=== PATIENT | male | born 1965 | race Caucasian/White ===

== ENCOUNTER 2020-07-25 18:15 | Inpatient (IN) | payer BC ==
[2020-07-25] MEDS ORDERED: MORPHINE SULFATE 4 MG/ML SYRINGE IV STA (18:17)
[2020-07-25] MEDS ORDERED: ONDANSETRON 4 MG/2 ML VIAL IVP STA (18:17)
[2020-07-25] MEDS ORDERED: HEPARIN SODIUM,PORCINE 5,000 UNIT/ML 1 ML VIAL IV STA (18:17)
[2020-07-25] MEDS ORDERED: ATORVASTATIN 80 MG TAB PO STA (18:21)
--- NOTE | 2020-07-25 18:24 | ED ---
General Adult HPI - General Chief complaint: Chest Pain Stated complaint: stemi Time Seen by Provider: 07/25/20 18:17 Source: patient, EMS Mode of arrival: EMS Limitations: no limitations - History of Present Illness Initial comments: Patient presents the ED by ambulance for evaluation. Patient states that he developed substernal chest pressure about 1.25 hours ago while watching television at rest. Patient admits to having associated dyspnea, nausea and vomiting. Patient states that his pain radiates to his bilateral axillae. Patient was given aspirin and nitroglycerin 2 by EMS. Patient reports that his pain has improved with the nitroglycerin that he was given by EMS, and he reports that his pain is currently 6 out of 10 in severity. Patient admits to smoking cigarettes regularly. Patient denies having any medical conditions, and he denies taking any medications regularly. Patient also denies illicit drug use. Patient denies trauma or injury, fever or chills, headache, focal numbness/weakness/neuro deficit, neck/jaw pain, back pain, pleuritic pain, cough or cold symptoms, palpitations, dizziness, diaphoresis, abdominal pain, urinary symptoms, leg or calf swelling or pain, or any other symptoms or complaints. After reviewing EMS EKG on patient's arrival to the ED, a code STEMI was called. - Related Data Home Medications Medication Instructions Recorded Confirmed No Known Home Medications 07/25/20 07/25/20 Allergies Allergy/AdvReac Type Severity Reaction Status Date / Time No Known Allergies Allergy Verified 07/25/20 18:25 Review of Systems ROS Statement: Those systems with pertinent positive or pertinent negative responses have been documented in the HPI. ROS Other: All systems not noted in ROS Statement are negative. Past Medical History Past Medical History: No Reported History History of Any Multi-Drug Resistant Organisms: None Reported Past Surgical History: Hernia Repair Past Psychological History: No Psychological Hx Reported Smoking Status: Current every day smoker Past Alcohol Use History: None Reported Past Drug Use History: None Reported General Exam Limitations: no limitations General appearance: alert, in no apparent distress Head exam: Present: atraumatic, normocephalic Eye exam: Present: normal appearance, EOMI ENT exam: Present: mucous membranes moist Neck exam: Present: other (Trachea is in midline) Respiratory exam: Present: normal lung sounds bilaterally. Absent: respiratory distress, wheezes, rales, rhonchi, stridor, chest wall tenderness Cardiovascular Exam: Present: normal rhythm, bradycardia, normal heart sounds, other (Normal radial pulses bilaterally) GI/Abdominal exam: Present: soft. Absent: distended, tenderness, guarding Extremities exam: Present: other (Negative Homans sign bilaterally). Absent: tenderness, pedal edema, calf tenderness Neurological exam: Present: alert, oriented X3. Absent: motor sensory deficit Psychiatric exam: Present: normal affect, normal mood Skin exam: Present: warm, dry, intact, normal color Course Vital Signs 07/25/20 07/25/20 18:15 18:32 Temperature 98 F Pulse Rate 53 L 52 L Respiratory 18 18 Rate Blood Pressure 134/83 117/72 O2 Sat by Pulse 97 98 Oximetry - Reevaluation(s) Reevaluation #1: 07/25/20 18:20 Case, H&P, EKG findings and ED/EMS management thus far were discussed with Dr. Perez (cardiology). He states that he will be in to the hospital as soon as possible to take the patient to the denture laboratory technician. He has no further recommendations at this time. 07/25/20 19:05 Case was discussed with Dr. Rojas. He accepts hospital admission. EKG Findings - EKG Comments: EKG Findings:: Sinus bradycardia, ventricular rate of 54 bpm, no ectopy, normal ID and QRS intervals, normal QT interval, rightward axis, inferior lead ST elevations with anterior lead reciprocal changes Medical Decision Making - Medical Decision Making Patient's EMS and ED EKGs both show an inferior STEMI. Code STEMI was called upon the patient's arrival to the ED. Dr. Perez (cardiology) met the patient in the ED, and has taken the patient to the Chair. Dr. Rojas has accepted hospital admission. - Lab Data Result diagrams: 07/25/20 18:16 07/25/20 18:16 Lab Results 07/25/20 07/25/20 07/25/20 Range/Units 18:16 18:16 18:16 WBC 14.3 H (3.8-10.6) k/uL RBC 4.83 (4.30-5.90) m/uL Hgb 15.5 (13.0-17.5) gm/dL Hct 47.4 (39.0-53.0) % MCV 98.0 (80.0-100.0) fL MCH 32.0 (25.0-35.0) pg MCHC 32.7 (31.0-37.0) g/dL RDW 12.9 (11.5-15.5) % Plt Count 197 (150-450) k/uL MPV 6.9 Neutrophils % 66 % Lymphocytes % 25 % Monocytes % 5 % Eosinophils % 3 % Basophils % 1 % Neutrophils # 9.3 H (1.3-7.7) k/uL Lymphocytes # 3.5 (1.0-4.8) k/uL Monocytes # 0.7 (0-1.0) k/uL Eosinophils # 0.4 (0-0.7) k/uL Basophils # 0.2 (0-0.2) k/uL PT 10.7 (9.0-12.0) sec INR 1.0 (<1.2) APTT 22.2 (22.0-30.0) sec Sodium 138 (137-145) mmol/L Potassium 3.8 (3.5-5.1) mmol/L Chloride 104 (98-107) mmol/L Carbon Dioxide 25 (22-30) mmol/L Anion Gap 9 mmol/L BUN 19 (9-20) mg/dL Creatinine 1.07 (0.66-1.25) mg/dL Est GFR (CKD-EPI)AfAm >90 (>60 ml/min/1.73 sqM) Est GFR (CKD-EPI)NonAf 78 (>60 ml/min/1.73 sqM) Glucose 159 H (74-99) mg/dL Calcium 9.0 (8.4-10.2) mg/dL Magnesium 1.9 (1.6-2.3) mg/dL Total Bilirubin 0.4 (0.2-1.3) mg/dL AST 26 (17-59) U/L ALT 24 (4-49) U/L Alkaline Phosphatase 66 (38-126) U/L Troponin I (0.000-0.034) ng/mL NT-Pro-B Natriuret Pep pg/mL Total Protein 6.5 (6.3-8.2) g/dL Albumin 3.9 (3.5-5.0) g/dL Coronavirus (PCR) (Not Detectd) 07/25/20 07/25/2021 Range/Units 18:16 18:16 18:32 WBC (3.8-10.6) k/uL RBC (4.30-5.90) m/uL Hgb (13.0-17.5) gm/dL Hct (39.0-53.0) % MCV (80.0-100.0) fL MCH (25.0-35.0) pg MCHC (31.0-37.0) g/dL RDW (11.5-15.5) % Plt Count (150-450) k/uL MPV Neutrophils % % Lymphocytes % % Monocytes % % Eosinophils % % Basophils % % Neutrophils # (1.3-7.7) k/uL Lymphocytes # (1.0-4.8) k/uL Monocytes # (0-1.0) k/uL Eosinophils # (0-0.7) k/uL Basophils # (0-0.2) k/uL PT (9.0-12.0) sec INR (<1.2) APTT (22.0-30.0) sec Sodium (137-145) mmol/L Potassium (3.5-5.1) mmol/L Chloride (98-107) mmol/L Carbon Dioxide (22-30) mmol/L Anion Gap mmol/L BUN (9-20) mg/dL Creatinine (0.66-1.25) mg/dL Est GFR (CKD-EPI)AfAm (>60 ml/min/1.73 sqM) Est GFR (CKD-EPI)NonAf (>60 ml/min/1.73 sqM) Glucose (74-99) mg/dL Calcium (8.4-10.2) mg/dL Magnesium (1.6-2.3) mg/dL Total Bilirubin (0.2-1.3) mg/dL AST (17-59) U/L ALT (4-49) U/L Alkaline Phosphatase (38-126) U/L Troponin I 0.013 (0.000-0.034) ng/mL NT-Pro-B Natriuret Pep 36 pg/mL Total Protein (6.3-8.2) g/dL Albumin (3.5-5.0) g/dL Coronavirus (PCR) Not Detected (Not Detectd) - Radiology Data Radiology results: report reviewed (Chest x-ray shows no active cardiopulmonary disease) Critical Care Time Critical Care Time: Yes Total Critical Care Time: 25 (STEMI) Disposition Clinical Impression: ST elevation myocardial infarction (STEMI) Disposition: ADMITTED IP TO THIS HOSP Condition: Stable Is patient prescribed a controlled substance at d/c from ED?: No Time of Disposition: 18:35
--- NOTE | 2020-07-25 18:29 | XR ---
EXAMINATION TYPE: XR chest 1V portable DATE OF EXAM: 07/25/2020 COMPARISON: NONE HISTORY: Chest pain TECHNIQUE: FINDINGS: Heart is normal. Lungs are clear of infiltrate. There is no heart failure. There are no hil ar masses. Costophrenic angles are clear. Bony thorax is intact. IMPRESSION: No active cardiopulmonary disease. Normal heart.
[2020-07-25 18:32] LABS: Basophils # (A) 0.2 k/uL (0-0.2); Basophils % (A) 1 %; Eosinophils # (A) 0.4 k/uL (0-0.7); Eosinophils % (A) 3 %; HCT 47.4 % (39.0-53.0); HGB 15.5 gm/dL (13.0-17.5); Lymphocytes # (A) 3.5 k/uL (1.0-4.8); Lymphocytes % (A) 25 %; MCHC 32.7 g/dL (31.0-37.0); Mean Platelet Volume 6.9; Monocytes # (A) 0.7 k/uL (0-1.0); Monocytes % (A) 5 %; Neutrophils # (A) 9.3 k/uL (1.3-7.7); Neutrophils % (A) 66 %; Platelet Count 197 k/uL (150-450); RBC 4.83 m/uL (4.30-5.90); RDW 12.9 % (11.5-15.5); WBC 14.3 k/uL (3.8-10.6)
[2020-07-25 18:39] LABS: ALT 24 U/L (4-49); AST 26 U/L (17-59); African American GFR (CKD) >90 (>60 ml/min/1.73 sqM); Albumin 3.9 g/dL (3.5-5.0); Alkaline Phosphatase 66 U/L (38-126); Anion Gap 9 mmol/L; Blood Urea Nitrogen 19 mg/dL (9-20); Carbon Dioxide 25 mmol/L (22-30); Chloride 104 mmol/L (98-107); Glucose 159 mg/dL (74-99); Magnesium 1.9 mg/dL (1.6-2.3); Non-African American GFR(CKD) 78 (>60 ml/min/1.73 sqM); Potassium 3.8 mmol/L (3.5-5.1); Sodium 138 mmol/L (137-145); Total Bilirubin 0.4 mg/dL (0.2-1.3); Total Protein 6.5 g/dL (6.3-8.2)
[2020-07-25 18:42] LABS: Partial Thromboplastin Time 22.2 sec (22.0-30.0); Prothrombin Time 10.7 sec (9.0-12.0)
[2020-07-25] MEDS ORDERED: LIDOCAINE 1% INJ 10MG/ML (20 ML MDV) ONE (18:46)
[2020-07-25] MEDS ORDERED: fentaNYL (PF) 50 MCG/ML 2 ML AMP ONE (18:46)
[2020-07-25] MEDS ORDERED: HEPARIN SODIUM 1,000 UN/ML (10ML VL) ONE (18:46)
[2020-07-25] MEDS ORDERED: VERAPAMIL 2.5 MG/ML 2 ML AMP ONE (18:46)
[2020-07-25] MEDS ORDERED: SODIUM CHLORIDE 0.9% 1,000 ML IV ONE (18:49)
[2020-07-25] MEDS ORDERED: LIDOCAINE 1% INJ 10MG/ML (20 ML MDV) SQ ONE (18:56)
[2020-07-25] MEDS ORDERED: fentaNYL (PF) 50 MCG/ML 2 ML AMP IV ONE (18:57)
[2020-07-25] MEDS ORDERED: VERAPAMIL SYRINGE (5 MG/10 ML) INTRAARTER ONE (18:58)
[2020-07-25] MEDS ORDERED: HEPARIN SODIUM 1,000 UN/ML (10ML VL) IV ONE (19:01)
[2020-07-25] MEDS ORDERED: TICAGRELOR 90 MG TAB ONE (19:02)
[2020-07-25] MEDS ORDERED: TICAGRELOR 90 MG TAB PO ONE (19:05)
[2020-07-25] MEDS ORDERED: NOREPINEPHRINE 4 MG in SODIUM CHLORIDE 0.9% 250 ML IV ONE ×4 (19:22)
[2020-07-25] MEDS ORDERED: IOPAMIDOL-370 125ML BTL INJ ONE (19:29)
[2020-07-25] MEDS ORDERED: MAG HYDROX/AL HYDROX/SIMETH 30 ML CUP PO PRN (19:54)
[2020-07-25] MEDS ORDERED: RX INFO: IV CONTRAST WAS GIVEN 1 EACH MISC MISCELLANE PRN (19:54)
[2020-07-25] MEDS ORDERED: ATROPINE SULFATE 0.1 MG/ML 10ML SYRINGE IV PRN (19:54)
[2020-07-25] MEDS ORDERED: ZOLPIDEM 5 MG TAB PO PRN (19:54)
[2020-07-25] MEDS ORDERED: NITROGLYCERIN SL TABS 0.4 MG TAB SUBLINGUAL PRN (19:54)
[2020-07-25] MEDS ORDERED: SODIUM CHLORIDE 0.9% 1,000 ML IV SCH (20:00)
[2020-07-25] MEDS ORDERED: IOPAMIDOL-370 100ML BTL INJ ONE (20:08)
[2020-07-25] MEDS: ATORVASTATIN 80 MG TAB PO SCH (22:11)
--- NOTE | 2020-07-25 22:47 | CC ---
CARDIAC CATHETERIZATION REPORT Mr. Ybarra is a 54-year-old male with known history of chronic tobacco use, who presented to the emergency room with an acute onset chest discomfort, was found to have evidence of acute inferior wall myocardial infarction. In view of that, he was evaluated by Dr. Perez and recommendations were made regarding cardiac catheterization. The procedures, risks, and complications were discussed with the patient who is in full understanding and agreement. PROCEDURE DETAILS: Patient was brought to the dental laboratory worker in a semi sedated state after receiving fentanyl and Benadryl. He was draped and prepped it usual fashion. Using Xylocaine anesthesia and Seldinger technique, a 6-Chilean sheath was introduced in the right radial artery. Selective right coronary angiography performed using 6-Chilean FR4 guiding catheter. After performing angioplasty and stenting of the right coronary artery, a 5-Chilean 3 and half left Jl catheter was introduced in the system and images of the left coronary system were obtained. Following that a 5-Chilean tight pigtail catheter was introduced into left ventricle and a 30-degree CORDERO view of the left ventricle was obtained. Following that, catheter and sheath were removed. Hemostasis was obtained with deployment of a TR band. There was no immediate complication. The patient was returned to his room in stable condition. FINDINGS: LEFT MAIN: This is a large-sized vessel, bifurcating into left circumflex, left anterior descending artery, left main coronary artery has no evidence of high-grade stenosis. LEFT ANTERIOR DESCENDING ARTERY: This is a large-sized vessel, giving rise to a large diagonal branch in the proximal segment. The left anterior descending coronary artery has no evidence of high-grade stenosis. LEFT CIRCUMFLEX: This is a codominant system giving rise to a proximal diagonal branch, distally bifurcating into small PDA and PLV. The left circumflex as well as branches have no evidence of high-grade stenosis. RIGHT CORONARY ARTERY: This vessel is totally occluded in mid segment after the takeoff of the acute marginal branch. There is no evidence of antegrade flow. LEFT VENTRICULOGRAM: Left ventriculogram was performed in 30-degree CORDERO view and revealed normal left ventricular size. The inferior wall is mildly hypokinetic. The estimated ejection fraction is 50%. There was no significant mitral regurgitation. HEMODYNAMICS: There was no gradient across the aortic valve. The left ventricular end-diastolic pressure was 20 mmHg. CONCLUSION: 1. Acutely occluded right coronary artery. 2. Normal left coronary system. 3. Mildly impaired left ventricular systolic function. RECOMMENDATIONS: In view of findings and anatomy, I recommend proceeding with angioplasty, stenting of the right coronary artery. The procedures, risks, and complications were discussed with the patient, who was in full understanding and agreement. DAWIT / LONG: [id number] /
--- NOTE | 2020-07-25 22:59 | PTCA ---
PERCUTANEOUSTRANS CORORONARY ANGIOGRAPHY Mr. Ybarra is a 54-year-old male with no history of coronary artery disease who presented with an acute inferior myocardial infarction, underwent cardiac catheterization and was found to have evidence of acutely occluded right coronary artery. In view of that, recommendation regarding angioplasty and stenting. The procedures, risks, and complications were discussed with the patient who is in full understanding and agreement. PROCEDURE DETAILS: Using the 6-Telugu FR4 guiding catheter a 0.014 balanced medium weight J-wire with a straight super cross microcatheter was used to cross the total occlusion. Following that, the microcatheter was removed and a 2.5 x 12 mm Trek balloon was advanced and 2 inflations at 8 atmospheres were done. Following that, the balloon was removed and a 3.25 x 23 mm Xience Katelyn stent was advanced, deployed and post dilated at 16 atmospheres. After the last inflation, after appropriate wait, the balloon and the guidewire were withdrawn back in the guiding catheter. Images were obtained and repeated. Those images reveal stable successful stenting. At that point, the guiding catheter, the balloon and the guidewire were removed, images of the left coronary system and left ventriculogram was performed. Following that, catheter and sheath were removed. Hemostasis was obtained with deployment of a TR band. There was no immediate complication. The patient was returned to his room in stable condition. Of note, the patient had received in addition 4000 units of intravenous heparin and oral loading dose of Brilinta. His ACT was followed. He had an episode of hypertension requiring norepinephrine infusion. His pain resolved at the end of the procedure and there was improvement in his ST-segment elevation. RESULTS: Successful stenting of the mid right coronary artery with reduction of stenosis from 100% to 0%. RECOMMENDATIONS: Patient will be continued on aspirin, Brilinta, statin and depending on his blood pressure, beta leydi and CHUN inhibitor will be added to his regimen. Those findings and recommendations and the importance of dual antiplatelet treatment were discussed with the patient and he is in full understanding and agreement. Duration of the procedure is 45 minutes. DAWIT / KHADIJAHN: [id number] /
[2020-07-25] MEDS: METOPROLOL TARTRATE 25 MG TAB PO SCH (23:59)
[2020-07-26 03:26] LABS: HCT 47.9 % (39.0-53.0); HGB 15.8 gm/dL (13.0-17.5); MCH 32.6 pg (25.0-35.0); MCV 98.9 fL (80.0-100.0); Mean Platelet Volume 6.7; Platelet Count 185 k/uL (150-450); RBC 4.85 m/uL (4.30-5.90); RDW 12.8 % (11.5-15.5); WBC 13.9 k/uL (3.8-10.6)
[2020-07-26 06:42] LABS: African American GFR (CKD) >90 (>60 ml/min/1.73 sqM); Anion Gap 7 mmol/L; Blood Urea Nitrogen 15 mg/dL (9-20); Calcium 9.2 mg/dL (8.4-10.2); Carbon Dioxide 23 mmol/L (22-30); Chloride 107 mmol/L (98-107); Cholesterol 195 mg/dL (<200); Glucose 112 mg/dL (74-99); HDL Cholesterol 44 mg/dL (40-60); LDL Cholesterol,Calculated 126 mg/dL (0-99); Non-African American GFR(CKD) >90 (>60 ml/min/1.73 sqM); Sodium 137 mmol/L (137-145); Triglycerides 125 mg/dL (<150)
[2020-07-26] MEDS: METOPROLOL TARTRATE 25 MG TAB PO SCH (08:28)
[2020-07-26] MEDS: ASPIRIN 81 MG PO SCH (08:32)
[2020-07-26] MEDS: TICAGRELOR 90 MG TAB PO SCH ×2 (08:33→21:19)
[2020-07-26] MEDS ORDERED: ASPIRIN 325 MG TAB PO SCH (09:00)
[2020-07-26] MEDS ORDERED: ONDANSETRON 4 MG/2 ML VIAL IVP PRN (09:02)
--- NOTE | 2020-07-26 09:34 | PN ---
PROGRESS NOTE Mr. Ybarra is a 54-year-old male with known history of chronic tobacco use, who presented with an acute inferior wall myocardial infarction, underwent emergent cardiac catheterization, was found to have an acutely occluded right coronary artery, underwent stenting of that vessel. He is feeling well this morning. He has no further anginal symptoms. His breathing has been stable. He denies any dizziness or palpitation. He denies any nausea. He had episode of sinus bradycardia during the night. Hemodynamically, he is stable otherwise. He is continued on aspirin once a day, Brilinta 90 mg twice a day, and Lipitor 80 mg daily. His metoprolol was held yesterday. PHYSICAL EXAMINATION: Blood pressure running in the 120s-30s with a heart rate in 50s. LUNGS: Clear. HEART: Regular rate and rhythm S1, S2. No S3. No rub. ABDOMEN: Soft, nontender. EXTREMITIES: No edema. Right radial pulse intact. LAB DATA: Revealed a troponin peak of 77.7. His LDL of 126. BUN and creatinine 15 and 0.9. Hemoglobin of 15.8, potassium 5.0. IMPRESSION: 1. Status post acute inferior myocardial infarction with stenting of the right coronary artery. 2. History of tobacco use. 3. Bradycardia. RECOMMENDATION: I will cut down the dose of his beta leydi. I will start him on a low-dose of an CHUN inhibitor. An echocardiogram with Doppler will be obtained today. If he remains stable I would expect he should be able to be transferred to telemetry floor and increase his level of activity and depending on his progress, further recommendation will be made. MMODL / IJN: [id number] /
[2020-07-26 10:45] VITALS: BMI 25.5
[2020-07-26] MEDS: METOPROLOL TARTRATE 12.5 MG TAB PO SCH ×2 (11:20→21:14)
--- NOTE | 2020-07-26 12:19 | ECHOF ---
Referral Reason:mi MEASUREMENTS -------- HEIGHT: 175.3 cm WEIGHT: 80.7 kg BP: RVIDd: 2.5 cm (< 3.3) IVSd: 1.0 cm (0.6 - 1.1) LVIDd: 4.2 cm (3.9 - 5.3) LVPWd: 1.0 cm (0.6 - 1.1) IVSs: 1.6 cm LVIDs: 1.9 cm LVPWs: 1.4 cm LAESV Index (A-L): 30.13 ml/m Ao Diam: 3.2 cm (2.0 - 3.7) AV Cusp: 2.8 cm (1.5 - 2.6) LA Diam: 3.1 cm (2.7 - 3.8) MV EXCURSION: 15.184 mm (> 18.000) MV EF SLOPE: 154 mm/s (70 - 150) EPSS: 0.9 cm MV E Dionicio: 0.64 m/s MV DecT: 265 ms MV A Dionicio: 0.72 m/s MV E/A Ratio: 0.88 RAP: 5.00 mmHg RVSP: 30.02 mmHg FINDINGS -------- Sinus rhythm. This was a technically adequate study. The left ventricular size is normal. Left ventricular wall thickness is normal. Overall left vent ricular systolic function is mildly impaired with, an EF between 45 - 50 %. Basal inferior LV wall motion is hypokinetic. Basal inferoseptal LV wall motion is hypokinetic. Mid inferior LV wall m otion is hypokinetic. Mid inferoseptal LV wall motion is hypokinetic. The right ventricle is normal in size. LA is midly dilated 29-33ml/m2. The right atrial size is normal. Interatrial and interventricular septum intact. The aortic valve is trileaflet, and appears structurally normal. No aortic stenosis or regurgitation. The mitral valve is normal. Mild mitral regurgitation is present. The tricuspid valve appears structurally normal. Mild tricuspid regurgitation present. Right vent ricular systolic pressure is normal at < 35 mmHg. Trace/mild (physiologic) pulmonic regurgitation. The aortic root size is normal. Normal inferior vena cava with normal inspiratory collapse consistent with estimated right atrial pre ssure of 5 mmHg. There is no pericardial effusion. CONCLUSIONS -------- 1. Left ventricular wall thickness is normal. 2. Overall left ventricular systolic function is mildly impaired with, an EF between 45 - 50 %. 3. Basal inferior LV wall motion is hypokinetic. 4. Basal inferoseptal LV wall motion is hypokinetic. 5. Mid inferior LV wall motion is hypokinetic. 6. Mid inferoseptal LV wall motion is hypokinetic. 7. LA is midly dilated 29-33ml/m2. 8. The aortic valve is trileaflet, and appears structurally normal. No aortic stenosis or regurgitati on. 9. Mild mitral regurgitation is present. 10. Mild tricuspid regurgitation present. 11. Trace/mild (physiologic) pulmonic regurgitation. 12. There is no pericardial effusion. [employer]ER: Henrietta Parrish RDCS
[2020-07-26] MEDS: ATORVASTATIN 80 MG TAB PO SCH (21:19)
--- NOTE | 2020-07-26 22:20 | P.HPIM ---
History of Present Illness H&P Date: 07/26/20 Chief Complaint: Chest pain History of presenting complaint: This is a pleasant 54-year-old patient, who is rather unremarkable possible history. Long-standing smoker. Yesterday morning suddenly felt as somebody's lifting off the ground and also punching with the chest. Some trouble breathing. Started pouring answered. Decided to come to the ER. Relevant for ST elevation acute MN in the inferior lead. Successful stenting of the RCA was carried out. Doing better today. No chest pain. Breathing is stable. Laying in bed. Did tolerate his meals. Review of systems: GEN.: A bit tired EYES: None HEENT: None NECK: None RESPIRATORY: None CARDIOVASCULAR: As above GASTROINTESTINAL: None GENITOURINARY: None MUSCULOSKELETAL: None LYMPHATICS: None HEMATOLOGICAL: None PSYCHIATRY: None NEUROLOGICAL: None Past medical history to include: Unremarkable Social history: Patient smokes a pack a day. For many years. No alcohol. No dictation drugs. Employed at [employer]. . Family history: Reviewed, noncontributory to presentation Physical examination: VITAL SIGNS: 98.8, 41, 12, 130/79, 99% on 2 L GENERAL: BMI 25.5, laying in bed, comfortable. EYES: Pupils equal. Conjunctiva normal. HEENT: External appearance of nose and ears normal, oral cavity grossly normal. NECK: JVD not raised; masses not palpable. HEART: First and second heart sounds are normal; no edema. LUNGS: Respiratory rate normal; clear to auscultation. ABDOMEN: Soft, nontender, liver spleen not palpable, no masses palpable. PSYCH: Alert and oriented x3; mood and affect normal. NEUROLOGICAL: Cranial nerves grossly intact; no facial asymmetry, power and sensation grossly intact. LYMPHATICS: No lymph nodes palpable in the axilla and neck INVESTIGATIONS, reviewed in the clinical context: White count 14.3 hemoglobin 15.5 platelets 197 potassium 3.8 creatinine 1.07 Troponin I 0.013, 76.6, 77 LDL 126 Coronavirus-P/Cr-not detected EKG tracing personally reviewed by me-ST elevation in inferior leads sinus rhythm Chest x-ray film personally reviewed by me-no obvious infiltrate 2-D echocardiogram EF 45-50%. With wall motion abnormalities. Assessment: -Acute inferior wall ST elevation myocardial infarction -Emergent cardiac catheterization with successful stenting to the RCA from 100- 0% -Hyperlipidemia -Chronic nicotine dependence patient cigarette smoker Plan: Patient currently on aspirin and Lipitor Zestril [place]. [place]. Care was discussed with the patient question also treated patient seen by Dr. Pérez from cardiology. Nicotine patch Past Medical History Past Medical History: No Reported History History of Any Multi-Drug Resistant Organisms: None Reported Past Surgical History: Hernia Repair Additional Past Anesthesia/Blood Transfusion Reaction / Comment(s): never had a transfusion Past Psychological History: No Psychological Hx Reported Smoking Status: Current every day smoker Past Alcohol Use History: None Reported Past Drug Use History: None Reported Medications and Allergies Home Medications Medication Instructions Recorded Confirmed Type No Known Home Medications 07/25/20 07/25/20 History Allergies Allergy/AdvReac Type Severity Reaction Status Date / Time No Known Allergies Allergy Verified 07/25/20 18:25 Physical Exam Vitals: Vital Signs Temp Pulse Resp BP Pulse Ox 07/26/20 07:00 42 L 15 102/50 99 07/26/20 06:00 56 L 10 L 135/79 91 L 07/26/20 05:00 41 L 19 126/83 99 07/26/20 04:00 98.4 F 43 L 14 119/80 96 07/26/20 03:00 46 L 17 140/87 98 07/26/20 02:00 53 L 17 118/70 98 07/26/20 01:00 47 L 16 109/72 97 07/26/20 00:00 98.4 F 47 L 16 117/72 99 07/25/20 23:00 49 L 16 111/69 97 07/25/20 22:00 48 L 14 101/65 97 07/25/20 21:00 59 L 10 L 106/59 97 07/25/20 20:11 67 12 110/60 98 07/25/20 18:32 52 L 18 117/72 98 07/25/20 18:15 98 F 53 L 18 134/83 97 Intake and Output 07/25/20 07/26/20 07/26/20 22:59 06:59 14:59 Intake Total 1140 600 75 Output Total 0 425 Balance 1140 175 75 Intake: IV 1140 600 75 Sodium Chloride 0.9% 1, 225 600 75 000 ml @ 75 mls/hr IV . [id number] [facility] Rx#:[id number] Output: Urine 0 425 Other: Weight 80.8 kg 78.45 kg 78.45 kg Results CBC & Chem 7: 07/26/20 02:53 07/26/20 02:53 Labs: Abnormal Lab Results - Last 24 Hours (Table) 07/25/20 07/25/20 07/26/20 Range/Units 18:16 18:16 01:00 WBC 14.3 H (3.8-10.6) k/uL Neutrophils # 9.3 H (1.3-7.7) k/uL Glucose 159 H (74-99) mg/dL Troponin I 76.600 H* (0.000-0.034) ng/mL LDL Cholesterol, Calc (0-99) mg/dL 07/26/20 07/26/20 07/26/20 Range/Units 02:53 02:53 02:53 WBC 13.9 H (3.8-10.6) k/uL Neutrophils # (1.3-7.7) k/uL Glucose 112 H (74-99) mg/dL Troponin I 77.700 H* (0.000-0.034) ng/mL LDL Cholesterol, Calc 126 H (0-99) mg/dL Thrombosis Risk Factor Assmnt - Choose All That Apply Each Factor Represents 1 point: Acute MN, Age 41-60 years Each Risk Factor Represents 2 Points: Arthroscopic surgery Thrombosis Risk Factor Assessment Total Risk Factor Score: 4 Thrombosis Risk Factor Assessment Level: Moderate Risk
[2020-07-27 07:57] LABS: African American GFR (CKD) >90 (>60 ml/min/1.73 sqM); Anion Gap 4 mmol/L; Blood Urea Nitrogen 16 mg/dL (9-20); Calcium 8.7 mg/dL (8.4-10.2); Carbon Dioxide 27 mmol/L (22-30); Chloride 106 mmol/L (98-107); Glucose 94 mg/dL (74-99); Non-African American GFR(CKD) >90 (>60 ml/min/1.73 sqM); Potassium 4.1 mmol/L (3.5-5.1); Sodium 137 mmol/L (137-145)
[2020-07-27] MEDS: ASPIRIN 81 MG PO SCH (08:27)
[2020-07-27] MEDS: TICAGRELOR 90 MG TAB PO SCH ×2 (08:27→19:41)
--- NOTE | 2020-07-27 11:07 | PN ---
PROGRESS NOTE Mr. Ybarra is a 54-year-old male with no prior documented history of coronary artery disease, who presented with an acute inferior myocardial infarction, underwent coronary angiography and stenting of his RCA. He is doing well this morning. He denies any symptoms of chest pain, his breathing has been stable. He has no arrhythmia. He has sinus bradycardia at times. No dizziness. No palpitation. His echocardiogram revealed ejection fraction 45% to 50%. He continued to be on aspirin once a day, Lipitor 80 mg daily, lisinopril 2.5 mg daily, metoprolol tartrate 12.5 mg twice a day, Brilinta 90 mg twice a day. PHYSICAL EXAMINATION: Blood pressure 115/60 with a heart rate in the high 50s, low 60s. LUNGS: Clear. HEART: Regular rate and rhythm S1, S2. No S3. No rub. ABDOMEN: Soft, nontender. EXTREMITIES: No edema. LAB DATA: Revealed BUN and creatinine 16 and 0.93. IMPRESSION: 1. Status post inferior myocardial infarction and stenting of the right coronary artery. 2. Hyperlipidemia. 3. History of smoking. RECOMMENDATIONS: Patient's activity will be increased. We will follow his heart rate. If he remains stable I would expect he may be able to be discharged home in the next 24 hours. MMODL / IJN: [id number] /
[2020-07-27] MEDS: METOPROLOL TARTRATE 12.5 MG TAB PO SCH ×2 (12:40→19:41)
[2020-07-27] MEDS: ATORVASTATIN 80 MG TAB PO SCH (19:40)
[2020-07-27 19:46] VITALS: RESP 16
[2020-07-27 20:18] LABS: Glucose,Whole Blood 104 mg/dL (75-99)
--- NOTE | 2020-07-27 22:13 | P.PN ---
Progress Note - Text Progress Note Date: 07/27/20 Chief Complaint: Chest pain History of presenting complaint: This is a pleasant 54-year-old patient, who is rather unremarkable possible history. Long-standing smoker. Yesterday morning suddenly felt as somebody's lifting off the ground and also punching with the chest. Some trouble breathing. Started pouring answered. Decided to come to the ER. Relevant for ST elevation acute [place] in the inferior lead. Successful stenting of the RCA was carried out. Doing better today. No chest pain. Breathing is stable. Laying in bed. Did tolerate his meals. Today-comfortable. Up and about. No guarding symptoms. Doing well. Review of systems: Was done for constitutional, cardiovascular, GI, pulmonary. relevant finding as above Active Medications Al Hydroxide/Mg Hydroxide (Mag Hydrox/Al Hydrox/Simeth 30 Ml Cup) 30 ml PO Q4HR PRN PRN Reason: Heartburn Aspirin (Aspirin 81 Mg) 81 mg PO DAILY [facility] Last Admin: 07/27/20 08:27 Dose: 81 mg Documented by: Atorvastatin Calcium (Atorvastatin 80 Mg Tab) 80 mg PO HS [facility] Last Admin: 07/27/20 19:40 Dose: 80 mg Documented by: Atropine Sulfate (Atropine Sulfate 0.1 Mg/Ml 10ml Syringe) 0.5 mg IV ONCE PRN PRN Reason: Symptomatic Bradycardia Lisinopril (Lisinopril 2.5 Mg Tab) 2.5 mg PO DAILY [facility] Last Admin: 07/27/20 08:27 Dose: 2.5 mg Documented by: Metoprolol Tartrate (Metoprolol Tartrate 12.5 Mg Tab) 12.5 mg PO BID [facility] Last Admin: 07/27/20 19:41 Dose: 12.5 mg Documented by: Nitroglycerin (Nitroglycerin Sl Tabs 0.4 Mg Tab) 0.4 mg SUBLINGUAL Q5M PRN PRN Reason: Chest Pain Ondansetron HCl (Ondansetron 4 Mg/2 Ml Vial) 4 mg IVP Q6HR PRN PRN Reason: Nausea And Vomiting Last Admin: 07/26/20 09:22 Dose: 4 mg Documented by: Ticagrelor (Ticagrelor 90 Mg Tab) 90 mg PO BID [facility] Last Admin: 07/27/20 19:41 Dose: 90 mg Documented by: Zolpidem Tartrate (Zolpidem 5 Mg Tab) 5 mg PO HS PRN PRN Reason: Insomnia Past medical history to include: Unremarkable Social history: Patient smokes a pack a day. For many years. No alcohol. No dictation drugs. Employed at [employer] . Family history: Reviewed, noncontributory to presentation Physical examination: VITAL SIGNS: 97.6, 59, 20, 138/76, 98% room air GENERAL: BMI 25.5, laying in bed, comfortable. EYES: Pupils equal. Conjunctiva normal. HEENT: External appearance of nose and ears normal, oral cavity grossly normal. NECK: JVD not raised; masses not palpable. HEART: First and second heart sounds are normal; no edema. LUNGS: Respiratory rate normal; clear to auscultation. ABDOMEN: Soft, nontender, liver spleen not palpable, no masses palpable. PSYCH: Alert and oriented x3; mood and affect normal. INVESTIGATIONS, reviewed in the clinical context: White count 14.3 hemoglobin 15.5 platelets 197 potassium 3.8 creatinine 1.07 Troponin I 0.013, 76.6, 77 LDL 126 Coronavirus-P/Cr-not detected EKG tracing personally reviewed by me-ST elevation in inferior leads sinus rhythm Chest x-ray film personally reviewed by me-no obvious infiltrate 2-D echocardiogram EF 45-50%. With wall motion abnormalities. Assessment: -Acute inferior wall ST elevation myocardial infarction -Emergent cardiac catheterization with successful stenting to the RCA from 100- 0% -Hyperlipidemia -Chronic nicotine dependence patient cigarette smoker Plan: Continue aspirin and Lipitor Zestril [place]. Brilinta., Nicotine patch. Hopefully discharge tomorrow.
[2020-07-28] MEDS: ASPIRIN 81 MG PO SCH (08:30)
[2020-07-28] MEDS: TICAGRELOR 90 MG TAB PO SCH (08:31)
[2020-07-28] MEDS: METOPROLOL TARTRATE 12.5 MG TAB PO SCH (08:31)
[2020-07-28 13:19] VITALS: BP 106/62; PULSE 67; TEMP 99.8
--- NOTE | 2020-07-28 13:52 | P.CRDCN ---
History of Present Illness History of present illness: This is Dr. Perez dictating a cardiology consult on this patient The patient was interviewed and examined IMPRESSION / ASSESSMENT: 54-year-old male patient presenting with chest discomfort associated with ST elevation in inferior leads and ST depression V1 through V3 Acute ST elevation [place] Current smoker Has not seen a physician for many years PLAN: IV heparin, aspirin, statins, beta blockers Urgent transferred to the cardiac catheterization lab for coronary intervention HPI Patient came to the emergency room complaining of midsternal chest discomfort that started about an hour and a half prior to coming to the emergency room. He complained of midsternal chest discomfort that was quite severe associated with shortness of breath and a bit nauseous. The pain radiated to both shoulders and axillary In route he was given aspirin and nitroglycerin. Was the peel improved it still persisted When I saw him in the ER on July 25 he is still experiencing discomfort in the chest. He was not in any distress no respiratory distress His vitals are stable afebrile 98F pulse rate in the 50s, respirations 16-18 blood pressure 134/83 and 117/72 mmHg He had not seen a physician for many years and did not note any other prior history. He is a current smoker line he is not in any medications at home His twelve-lead EKG showed sinus mechanism with ST elevation in the inferior leads and ST depression in V1 and V2 V3 and and high lateral leads consistent with an inferior posterior lateral acute ST elevation [place] I discussed this with the ER physician and Dr. Pérez I discussed this with the patient and his and we will be proceeding to the cardiac Blood [facility] for urgent coronary angiography and intervention The patient was agreeable to the plan . He was treated with aspirin atorvastatin IV heparin and oral beta blockers ROS: No fever chills or rigors, no cough, phlegm or expectoration, no nausea, vomiting or diarrhea, no hematuria, dysuria, no musculoskeletal complaints, no strokes or seizures, no skin lesions. EXAMINATION: 134/83 mmHg pulse rate in the 50s Heart sounds S1 and S2 are normal no no murmurs no gallops no rub No JVD no carotid bruits Abdomen is soft Nexium days warm skin was warm REVIEW OF LABS, ECG & MEDICAL DATA Labs are pending EKG as above Past Medical History Past Medical History: No Reported History History of Any Multi-Drug Resistant Organisms: None Reported Past Surgical History: Hernia Repair Additional Past Anesthesia/Blood Transfusion Reaction / Comment(s): never had a transfusion Past Psychological History: No Psychological Hx Reported Smoking Status: Current every day smoker Past Alcohol Use History: None Reported Past Drug Use History: None Reported Medications and Allergies Home Medications Medication Instructions Recorded Confirmed Type Aspirin 81 mg PO DAILY #30 chew 07/28/20 Rx Atorvastatin [Lipitor] 80 mg PO HS #30 tab 07/28/20 Rx Metoprolol Tartrate [Lopressor] 12.5 mg PO BID #60 tab 07/28/20 Rx Nitroglycerin Sl Tabs [Nitrostat] 0.4 mg SUBLINGUAL Q5M PRN #30 tab 07/28/20 Rx Ticagrelor [Brilinta] 90 mg PO BID #60 tab 07/28/20 Rx lisinopriL [Zestril] 2.5 mg PO DAILY #30 tab 07/28/20 Rx Allergies Allergy/AdvReac Type Severity Reaction Status Date / Time No Known Allergies Allergy Verified 07/25/20 18:25 Physical Exam Vitals: Vital Signs Temp Pulse Resp BP Pulse Ox 07/28/20 12:55 99.8 F H 67 16 106/62 95 07/28/20 08:10 98.3 F 65 16 109/66 98 07/28/20 03:38 62 16 107/60 97 07/28/20 00:00 56 L 16 118/64 98 07/27/20 19:45 65 16 124/70 98 07/27/20 16:00 97.6 F 59 L 20 138/76 98 Intake and Output 07/27/20 07/28/20 07/28/20 22:59 06:59 14:59 Intake Total 480 180 Balance 480 180 Intake: Oral 480 180 Other: # Voids 3 1 1 # Bowel Movements 1 Weight 72.9 kg Results 07/26/20 02:53 07/27/20 07:10 Current Medications Generic Name Dose Route Start Last Admin Trade Name Freq PRN Reason Stop Dose Admin Al Hydroxide/Mg Hydroxide 30 ml 07/25/20 19:54 Mag Hydrox/Al Hydrox/Simeth 30 Ml Cup PO Q4HR PRN Heartburn Aspirin 81 mg 07/26/20 09:00 07/28/20 08:30 Aspirin 81 Mg PO 81 mg DAILY [facility]IL[facility] Administration Atorvastatin Calcium 80 mg 07/25/20 21:00 07/27/20 19:40 Atorvastatin 80 Mg Tab PO 80 mg HS [facility] Administration Atropine Sulfate 0.5 mg 07/25/20 19:54 Atropine Sulfate 0.1 Mg/Ml 10ml Syringe IV ONCE PRN Symptomatic Bradycardia Lisinopril 2.5 mg 07/26/20 09:00 07/28/20 08:30 Lisinopril 2.5 Mg Tab PO 2.5 mg DAILY [facility] Administration Metoprolol Tartrate 12.5 mg 07/26/20 09:00 07/28/20 08:31 Metoprolol Tartrate 12.5 Mg Tab PO 12.5 mg BID [facility] Administration Nitroglycerin 0.4 mg 07/25/20 19:54 Nitroglycerin Sl Tabs 0.4 Mg Tab SUBLINGUAL Q5M PRN Chest Pain Ondansetron HCl 4 mg 07/26/20 09:02 07/26/20 09:22 Ondansetron 4 Mg/2 Ml Vial IVP 4 mg Q6HR PRN Administration Nausea And Vomiting Ticagrelor 90 mg 07/26/20 09:00 07/28/20 08:31 Ticagrelor 90 Mg Tab PO 90 mg BID [facility] Administration Zolpidem Tartrate 5 mg 07/25/20 19:54 Zolpidem 5 Mg Tab PO HS PRN Insomnia Intake and Output 07/27/20 07/28/20 07/28/20 22:59 06:59 14:59 Intake Total 480 180 Balance 480 180 Intake: Oral 480 180 Other: # Voids 3 1 1 # Bowel Movements 1 Weight 72.9 kg 07/26/20 02:53 07/27/20 07:10
--- NOTE | 2020-07-28 14:22 | P.PN ---
Subjective Progress Note Date: 07/28/20 HISTORY OF PRESENT ILLNESS: Patient examined this morning at the bedside. Patient is status post cardiac catheterization with stent to the RCA. He denies chest pain or pressure. Denies shortness of breath. Vital signs are stable. Echocardiogram completed revealed ejection fraction 45-50%. He is hoping to be discharged home today. PHYSICAL EXAM: VITAL SIGNS: Reviewed. GENERAL: Well-developed in no acute distress. NECK: Supple. No JVD or thyromegaly LUNGS: Respirations even and unlabored. Lungs essentially clear to auscultation bilaterally. HEART: Regular rate and rhythm. S1 and S2 heard. EXTREMITIES: Normal range of motion. No clubbing or cyanosis. Peripheral pulses intact. No lower extremity edema ASSESSMENT: STEMI, status post PCI to RCA Nicotine dependence PLAN: Continue current cardiac medications Patient is stable for discharge home today from a cardiac standpoint. He is to follow up on an outpatient basis. Nurse practitioner note has been reviewed by physician. Signing provider agrees with the documented findings, assessment, and plan of care. Objective - Vital Signs Vital signs: Vital Signs Temp 99.8 F H 07/28/20 12:55 Pulse 67 07/28/20 12:55 Resp 16 07/28/20 12:55 BP 106/62 07/28/20 12:55 Pulse Ox 95 07/28/20 12:55 Intake & Output 07/27/20 07/28/20 07/28/20 18:59 06:59 18:59 Intake Total 1200 420 Balance 1200 420 Weight 72.9 kg Intake: Oral 1200 420 Other: # Voids 3 1 1 # Bowel Movements 1 - Labs CBC & Chem 7: 07/26/20 02:53 07/27/20 07:10 Labs: Abnormal Lab Results - Last 24 Hours (Table) 07/27/20 Range/Units 20:17 POC Glucose (mg/dL) 104 H (75-99) mg/dL
--- NOTE | 2020-07-29 18:34 | P.DS ---
Providers Date of admission: 07/25/20 18:35 Expected date of discharge: 07/28/20 Attending physician: John Rojas Consults: 07/25/20 18:35 Consult Physician Urgent Consulting Provider: Shan Perez Consult Reason/Comments: STEMI Do you want consulting provider notified?: Already Contacted 07/25/20 19:54 Consult Physician Routine Consulting Provider: Nay Nicolas Consult Reason/Comments: Post Interventional patient Do you want consulting provider notified?: Already Contacted Primary care physician: [facility] Course: Chief Complaint: Chest pain History of presenting complaint: This is a pleasant 54-year-old patient, who is rather unremarkable possible history. Long-standing smoker. Yesterday morning suddenly felt as somebody's lifting off the ground and also punching with the chest. Some trouble breathing. Started pouring answered. Decided to come to the ER. Relevant for ST elevation acute [place] in the inferior lead. Successful stenting of the RCA was carried out. Doing better today. No chest pain. Breathing is stable. Laying in bed. Did tolerate his meals. Today-ambulating. no cardiac symptoms. Feeling well. Discussed with the patient. Cleared by cardiology consultation: [facility] Past medical history to include: Unremarkable Social history: Patient smokes a pack a day. For many years. No alcohol. No dictation drugs. Employed at [employer]. . Family history: Reviewed, noncontributory to presentation Physical examination: VITAL SIGNS: 99.8, 67, 16, 106/62, 95% room air GENERAL: BMI 25.5, laying in bed, comfortable. EYES: Pupils equal. Conjunctiva normal. HEENT: External appearance of nose and ears normal, oral cavity grossly normal. NECK: JVD not raised; masses not palpable. HEART: First and second heart sounds are normal; no edema. LUNGS: Respiratory rate normal; clear to auscultation. ABDOMEN: Soft, nontender, liver spleen not palpable, no masses palpable. PSYCH: Alert and oriented x3; mood and affect normal. INVESTIGATIONS, reviewed in the clinical context: White count 14.3 hemoglobin 15.5 platelets 197 potassium 3.8 creatinine 1.07 Troponin I 0.013, 76.6, 77 LDL 126 Coronavirus-P/Cr-not detected EKG tracing personally reviewed by me-ST elevation in inferior leads sinus rhythm Chest x-ray film personally reviewed by me-no obvious infiltrate 2-D echocardiogram EF 45-50%. With wall motion abnormalities. Assessment: -Acute inferior wall ST elevation myocardial infarction -Emergent cardiac catheterization with successful stenting to the RCA from 100- 0% -Hyperlipidemia -Chronic nicotine dependence patient cigarette smoker disposition: Home Patient Condition at Discharge: Stable Plan - Discharge Summary Discharge Rx Participant: Yes New Discharge Prescriptions: New Aspirin 81 mg PO DAILY #30 chew Ticagrelor [Brilinta] 90 mg PO BID #60 tab Atorvastatin [Lipitor] 80 mg PO HS #30 tab Metoprolol Tartrate [Lopressor] 12.5 mg PO BID #60 tab Nitroglycerin Sl Tabs [Nitrostat] 0.4 mg SUBLINGUAL Q5M PRN #30 tab PRN Reason: Chest Pain lisinopriL [Zestril] 2.5 mg PO DAILY #30 tab Discharge Medication List Aspirin 81 mg PO DAILY #30 chew 07/28/20 [Rx] Atorvastatin [Lipitor] 80 mg PO HS #30 tab 07/28/20 [Rx] Metoprolol Tartrate [Lopressor] 12.5 mg PO BID #60 tab 07/28/20 [Rx] Nitroglycerin Sl Tabs [Nitrostat] 0.4 mg SUBLINGUAL Q5M PRN #30 tab 07/28/20 [Rx] Ticagrelor [Brilinta] 90 mg PO BID #60 tab 07/28/20 [Rx] lisinopriL [Zestril] 2.5 mg PO DAILY #30 tab 07/28/20 [Rx] Follow up Appointment(s)/Referral(s): Shan Perez MD [STAFF PHYSICIAN] - 1 Week ([facility] at the office will call you with an appointment time and date. ) Sergey Jonas MD [STAFF PHYSICIAN] - 08/06/20 12:40 pm (Arrive 20 min early to fill out new patient paperwork. ) Patient Instructions/Handouts: Heart Attack (DC), Heart Healthy Diet (DC), After Radial Heart Catheterization (GEN) Discharge Disposition: HOME SELF-CARE
== END 2020-07-28 16:26 | disposition home or self-care (01) | DRG 247 ==
LOC: EC 18:15 → 2SICU 18:35 → 3SCARD 07-26 16:41
PROVIDERS: ADMIT Hospitalist; ATTEND Hospitalist
DX: I21.19 ST elevation (STEMI) myocardial infarction involving other coronary artery of inferior wall (principal); Q25.0 Patent ductus arteriosus; E78.5 Hyperlipidemia, unspecified; F17.210 Nicotine dependence, cigarettes, uncomplicated; I25.82 Chronic total occlusion of coronary artery; Z20.822 Contact with and (suspected) exposure to COVID-19; I25.10 Atherosclerotic heart disease of native coronary artery without angina pectoris; I25.2 Old myocardial infarction; Z79.899 Other long term (current) drug therapy; Z79.82 Long term (current) use of aspirin; Z79.02 Long term (current) use of antithrombotics/antiplatelets; Z98.890 Other specified postprocedural states
CPT/HCPCS: 36415; 71045; 80048; 80053; 80061; 83735; 83880; 84484; 85025; 85027; 85347; 85610; 85730; 87635; 93005; 93306; 93458; 96374; 96375; 99285

== ENCOUNTER → 2021-09-11 | Day surgery (SDC) | payer BC ==
[2021-09-09 13:54] VITALS: BMI 27.3
[~2021-09-11] MED LIST: ALPRAZolam 0.25 MG TAB PO PRN; ALPRAZolam 0.5 MG TAB PO PRN; ASPIRIN 325 MG TAB PO STA; ASPIRIN 81 MG PO SCH; ATORVASTATIN 80 MG TAB PO SCH; HEPARIN SODIUM 1,000 UN/ML (10ML VL) IV ONE; HEPARIN SODIUM,PORCINE 10,000 UNIT in SODIUM CHLORIDE 0.9% 1,000 ML IRRIGATION PRN; HEPARIN SODIUM,PORCINE 2,500 UNIT in SODIUM CHLORIDE 0.9% 250 ML IRRIGATION PRN; IOPAMIDOL-370 125ML BTL INJ ONE; LIDOCAINE 1% INJ 10MG/ML (20 ML MDV) SQ ONE; METOPROLOL TARTRATE 12.5 MG TAB PO SCH; NITROGLYCERIN SL TABS 0.4 MG TAB SUBLINGUAL PRN; RX INFO: IV CONTRAST WAS GIVEN 1 EACH MISC MISCELLANE PRN; SODIUM CHLORIDE 0.9% 1,000 ML IV ONE; SODIUM CHLORIDE 0.9% 1,000 ML IV SCH; SODIUM CHLORIDE 0.9% 1,000 ML in EMPTY BAG 1 BAG IV SCH; VERAPAMIL SYRINGE (5 MG/10 ML) INTRAARTER ONE; fentaNYL (PF) 50 MCG/ML 2 ML AMP IVP ONE
[2021-09-11 07:36] VITALS: RESP 16; TEMP 97.5
[2021-09-11 07:41] LABS: Basophils # (A) 0.1 k/uL (0-0.2); Basophils % (A) 1 %; Eosinophils # (A) 0.2 k/uL (0-0.7); Eosinophils % (A) 2 %; HCT 45.1 % (39.0-53.0); Lymphocytes # (A) 2.2 k/uL (1.0-4.8); Lymphocytes % (A) 26 %; MCH 32.8 pg (25.0-35.0); MCHC 33.3 g/dL (31.0-37.0); MCV 98.5 fL (80.0-100.0); Mean Platelet Volume 7.8; Monocytes # (A) 0.6 k/uL (0-1.0); Monocytes % (A) 7 %; Neutrophils # (A) 5.4 k/uL (1.3-7.7); Neutrophils % (A) 63 %; Platelet Count 216 k/uL (150-450); RBC 4.58 m/uL (4.30-5.90); RDW 12.7 % (11.5-15.5); WBC 8.5 k/uL (3.8-10.6)
[2021-09-11 07:58] LABS: African American GFR (CKD) >90 (>60 ml/min/1.73 sqM); Anion Gap 3 mmol/L; Blood Urea Nitrogen 21 mg/dL (9-20); Carbon Dioxide 28 mmol/L (22-30); Chloride 108 mmol/L (98-107); Glucose 96 mg/dL (74-99); Non-African American GFR(CKD) >90 (>60 ml/min/1.73 sqM); Potassium 4.1 mmol/L (3.5-5.1); Sodium 139 mmol/L (137-145)
--- NOTE | 2021-09-11 10:03 | P.CARDCATH ---
Date of Procedure: 09/11/21 Description of Procedure: Cardiac Catheterization: The patient is a 56-year-old male with a known history of coronary disease status post inferior wall myocardial infarction and stenting of the RCA in July 2020 who has been followed by Dr. Perez and had recent episode of chest discomfort and abnormal MPI. Recommendations were made regarding cardiac catheterization, the risks and the complications were discussed with the patient who is in full understanding and agreement. Procedure Description: Patient was brought to labor relations representative in fasting semi-sedated state after receiving Fentanyl and Benadryl achieiving moderate conscious sedated state. Using Xylocaine Anesthesia and Seldinger technique, a 6-Faroese sheath was introduced in the right radial artery . Subsequently, selective coronary angiography performed using a 5-Faroese 3.5 bend Jl catheter. Multiple views of the coronary artery including hemiaxial views were obtained. The 5-Faroese Pigtail catheter was used to cross the aortic valve and LVEDP was calculated. Following that, catheter and sheath were removed. Hemostasis was obtained with deployment of TR band . There was no immediate complication. Patient was returned to room in stable condition. Of note, the patient received a total of 4000 units of intravenous heparin as well as intra-arterial verapamil. There was no immediate complications. Findings: Left main: This is a large size vessel, bifurcating LAD and left circumflex, left main has no high-grade stenosis LAD: This is a large size vessel, reaching to the apex, giving rise to a proximal large diagonal branch, the LAD and its branches have no high-grade stenosis Left circumflex: This is a nondominant vessel, giving rise to 2 obtuse marginal branch, the left circumflex has no obstructive disease RCA: This is a dominant vessel, large in caliber, bifurcating into PDA and PLV. The proximal RCA has 20% plaque the stented segment is patent with no evidence of in-stent restenosis. [Left] Ventriculogram: Was not performed Hemodynamics: There was no gradient across the aortic valve, LVEDP 10-14 mmHg Conclusion: 1. Patent stent in the RCA 2. Mild disease in the proximal RCA 3. No evidence of obstructive disease LAD or left circumflex 4. Right dominance Recommendations: I have recommended continued medical therapy, at this time I see no evidence of progression of disease. The patient can stop the Plavix at this time and continue aspirin since it has been over a year since his OK. The findings and the recommendations were discussed with the patient who is in full agreement and understanding. Duration of sedation is 15 minutes.
[2021-09-11 13:33] VITALS: BP 115/72; PULSE 52
== END | disposition home or self-care (01) ==
LOC: CATHCVL 07:07
PROVIDERS: ATTEND Internal Medicine Interventional Cardiology
DX: I25.10 Atherosclerotic heart disease of native coronary artery without angina pectoris (principal); I25.2 Old myocardial infarction; E78.5 Hyperlipidemia, unspecified; I10 Essential (primary) hypertension; I25.5 Ischemic cardiomyopathy; Z20.822 Contact with and (suspected) exposure to COVID-19; Z95.5 Presence of coronary angioplasty implant and graft; Z87.891 Personal history of nicotine dependence; Z79.02 Long term (current) use of antithrombotics/antiplatelets; Z79.899 Other long term (current) drug therapy; Z79.82 Long term (current) use of aspirin
CPT/HCPCS: 93458; 80048; 85025; 87635; C1894; C1769; J2001; J3010; J1644; Q9967

== ENCOUNTER → 2022-10-14 | Outpatient (CLI) | payer BC ==
[2022-10-15 00:07] LABS: African American GFR (CKD) 85.3 (60.0-200.0); Anion Gap 10.9 mmol/L (10.00-18.00); BUN/Creat Ratio 15.64 Ratio (12.00-20.00); Blood Urea Nitrogen 17.2 mg/dL (9.0-27.0); Calcium 8.8 mg/dL (8.7-10.3); Carbon Dioxide 25.1 mmol/L (20.0-27.5); Non-African American GFR(CKD) 73.6 (60.0-200.0)
[2022-10-15 01:25] LABS: Basophils # (A) 0.06 X 10*3/uL (0.00-0.10); Basophils % (A) 0.6 %; Eosinophils # (A) 0.25 X 10*3/uL (0.04-0.35); Eosinophils % (A) 2.7 %; HCT 47.2 % (39.6-50.0); HGB 14.9 g/dL (13.0-17.0); Immature Grans, Automated 0.4 %; Lymphocytes # (A) 2.32 X 10*3/uL (0.90-5.00); Lymphocytes % (A) 24.9 %; MCHC 31.6 g/dL (32.0-37.0); MCV 98.1 fL (80.0-97.0); Mean Platelet Volume 9.9 fL (9.5-12.2); Monocytes # (A) 0.73 X 10*3/uL (0.20-1.00); Monocytes % (A) 7.8 %; NRBC Per 100 WBC 0 /100 WBCS (0.0-0.0); Neutrophils # (A) 5.93 X 10*3/uL (1.80-7.70); Neutrophils % (A) 63.6 %; Platelet Count 250 X 10*3/uL (140-440); RBC 4.81 X 10*6/uL (4.40-5.60); RDW 12.8 % (11.5-14.5); WBC 9.33 X 10*3/uL (4.50-10.00)
[2022-10-15 21:44] LABS: Appearance,Urine Turbid (Clear); Bacteria,Urine 1+ /HPF (None Seen); Bilirubin,Urine Small (Negative); Blood,Urine Large (Negative); Calcium Oxalate Crystals,Urine Present /LPF (None Seen); Color,Urine Orange (Yellow); Ketones,Urine Negative (Negative); Nitrite,Urine Negative (Negative); Specific Gravity,Urine 1.024 (1.001-1.030); Sperm,Urine Present /LPF (None Seen); Yeast (UA) Present /LPF (None Seen)
== END | disposition home or self-care (01) ==
LOC: LABPAT 14:42
PROVIDERS: ATTEND Urology
DX: Z01.812 Encounter for preprocedural laboratory examination (principal); R33.9 Retention of urine, unspecified; R31.29 Other microscopic hematuria
CPT/HCPCS: 80048; 81001; 85025; 87086

== ENCOUNTER 2022-10-18 09:05 | Day surgery (SDC) | payer BC ==
[2022-10-13 14:48] VITALS: BMI 19.8
--- NOTE | 2022-10-17 13:35 | P.GSHP ---
History of Present Illness H&P Date: 10/17/22 57 yo male whom I originally saw for urine retention during evaluation of a AAA. He had 1700 ml of urine retention. He had been on cic and was developing the senstation of fullness. He underwent a bipolar turp 09/24/22for benign disease. He has been unable to void despite the desire. I recystoscoped the patient last week and found a ball valve obstructing flap of tissue as well as some obstructing left apical tissue. He comes for a secondary turp. He understands that if he still doesnt urinate then it is a bladder and not a prostate issue. - Constitutional Constitutional: Denies chills, Denies fever - EENT Eyes: denies blurred vision, denies pain Ears, nose, mouth and throat: Denies headache, Denies sore throat - Cardiovascular Cardiovascular: Denies chest pain, Denies shortness of breath - Respiratory Respiratory: Denies cough, Denies 7 - Gastrointestinal Gastrointestinal: Denies abdominal pain, Denies diarrhea, Denies nausea, Denies vomiting - Genitourinary (Female) Genitourinary: Denies dysuria, Denies hematuria - Genitourinary (Male) Genitourinary: Denies dysuria, Denies hematuria - Musculoskeletal Musculoskeletal: Denies myalgias - Integumentary Integumentary: Denies pruritus, Denies rash - Neurological Neurological: Denies numbness, Denies weakness - Psychiatric Psychiatric: Denies anxiety, Denies depression - Endocrine Endocrine: Denies fatigue, Denies weight change Past Medical History Past Medical History: Hyperlipidemia, Hypertension, Myocardial Infarction ([place]), Prostate Disorder Additional Past Medical History / Comment(s): Enlarged prostate. Last Myocardial Infarction Date:: 08/07 History of Any Multi-Drug Resistant Organisms: None Reported Past Surgical History: Heart Catheterization With Stent, Hernia Repair, Prostate Surgery Additional Past Surgical History / Comment(s): Cardiac stent X1. Hernia repair X2. "Prostate cleaned out." Past Anesthesia/Blood Transfusion Reactions: No Reported Reaction Additional Past Anesthesia/Blood Transfusion Reaction / Comment(s): Has never had a blood transfusion. Date of Last Stent Placement:: 08/07 Past Psychological History: No Psychological Hx Reported Smoking Status: Former smoker Past Alcohol Use History: None Reported Additional Past Alcohol Use History / Comment(s): Quit smoking 08/07, smoked for 30 yrs. Past Drug Use History: None Reported - Past Family History Mother Family Medical History: No Reported History Medications and Allergies Home Medications Medication Instructions Recorded Confirmed Type Aspirin 81 mg PO DAILY #30 chew 07/28/20 10/13/22 Rx Atorvastatin [Lipitor] 80 mg PO HS #30 tab 07/28/20 10/13/22 Rx Metoprolol Tartrate [Lopressor] 6.25 mg PO QAM 09/09/21 10/13/22 History Cholecalciferol [Vitamin D3 (25 50 mcg PO DAILY 10/13/22 10/13/22 History Mcg = 1000 Iu)] lisinopriL [Zestril] 5 mg PO HS 10/13/22 10/13/22 History Allergies Allergy/AdvReac Type Severity Reaction Status Date / Time No Known Allergies Allergy Verified 10/13/22 14:40 Surgical - Exam - General well developed, well nourished, no distress - Eyes normal ocular movement, no icteric - ENT no hearing loss, no congestion - Neck no masses, trachea midline - Respiratory normal respiratory effort, clear to auscultation - Abdomen Abdomen: soft, non tender, no guarding, no rigid, no rebound - Integumentary no rash, no abnormal pigmentation - Neurologic no disoriented, no combative - Psychiatric oriented to time, oriented to person, oriented to place, speech is normal, memory intact Assessment and Plan Assessment: Impression: peristent urine retention, htn, cad Plan: re bipolar turp
[~2022-10-18 09:05] MED LIST changes: -ALPRAZolam 0.25 MG TAB PO PRN; -ALPRAZolam 0.5 MG TAB PO PRN; +AMPICILLIN 1,000 MG in SODIUM CHLORIDE 0.9% 50 ML IVPB PRN; -ASPIRIN 325 MG TAB PO STA; -ASPIRIN 81 MG PO SCH; -ATORVASTATIN 80 MG TAB PO SCH; +DEXAMETHASONE SOD PHOSPHATE 4 MG/ML 1 ML VIAL IV ONE; +GENTAMICIN 90 MG in SODIUM CHLORIDE 0.9% 100 ML IVPB PRN; -HEPARIN SODIUM 1,000 UN/ML (10ML VL) IV ONE; -HEPARIN SODIUM,PORCINE 10,000 UNIT in SODIUM CHLORIDE 0.9% 1,000 ML IRRIGATION PRN; -HEPARIN SODIUM,PORCINE 2,500 UNIT in SODIUM CHLORIDE 0.9% 250 ML IRRIGATION PRN; +HYDROmorphone 0.5 MG/0.5 ML SYRINGE IVP PRN; -IOPAMIDOL-370 125ML BTL INJ ONE; +LACTATED RINGERS 1,000 ML IV SCH; -LIDOCAINE 1% INJ 10MG/ML (20 ML MDV) SQ ONE; -METOPROLOL TARTRATE 12.5 MG TAB PO SCH; +MIDAZOLAM 2 MG/2 ML VIAL IV PRN; -NITROGLYCERIN SL TABS 0.4 MG TAB SUBLINGUAL PRN; +ONDANSETRON 4 MG/2 ML VIAL IVP ONE; -RX INFO: IV CONTRAST WAS GIVEN 1 EACH MISC MISCELLANE PRN; +SCOPOLAMINE 1 MG/72 HR PATCH TRANSDERM ONE; -SODIUM CHLORIDE 0.9% 1,000 ML IV ONE; -SODIUM CHLORIDE 0.9% 1,000 ML IV SCH; -SODIUM CHLORIDE 0.9% 1,000 ML in EMPTY BAG 1 BAG IV SCH; -VERAPAMIL SYRINGE (5 MG/10 ML) INTRAARTER ONE; -fentaNYL (PF) 50 MCG/ML 2 ML AMP IVP ONE
[2022-10-18] MEDS ORDERED: LIDOCAINE 1% (10MG/ML) FOR IV START INTRADERMA ONE (10:37)
[2022-10-18] MEDS ORDERED: PROPOFOL 10 MG/ML 20 ML VIAL IV ONE (11:31)
[2022-10-18] MEDS ORDERED: HYDROmorphone (PF) 1 MG/ML ONE (11:31)
[2022-10-18] MEDS ORDERED: KETOROLAC 15 MG/ML 1 ML VIAL ONE (11:31)
[2022-10-18] MEDS ORDERED: LIDOCAINE 2% INJ 20 MG/ML (2 ML VIAL) ONE (11:31)
[2022-10-18] MEDS ORDERED: fentaNYL (PF) 50 MCG/ML 2 ML AMP ONE (11:31)
[2022-10-18] MEDS ORDERED: MIDAZOLAM 2 MG/2 ML VIAL ONE (11:31)
--- NOTE | 2022-10-18 12:29 | P.OP ---
Date of Procedure: 10/18/22 Preoperative Diagnosis: Post-TURP urine retention Postoperative Diagnosis: Same Procedure(s) Performed: Secondary bipolar TURP Anesthesia: LAMBERT Surgeon: Angel Soto Estimated Blood Loss (ml): 25 Pathology: other (Prostate) Condition: stable Disposition: PACU Indications for Procedure: Patient is 57. He presented 2 months ago with large volume urine retention (1700 mL). Symptomatically his bladder recuperated but he is still unable to urinate. He underwent a bipolar TURP about one month ago but he was unable to urinate postoperatively despite sensation of the desire to urinate. Follow-up cystoscopy identified some apical left lateral tissue as well as a ball-valve flap apically he comes for secondary resection Description of Procedure: Patient brought to the operating suite. Given general anesthesia. Placed lithotomy position sterile prep and drape. He received preoperative antibiotics. Under direct vision the 25-Occitan sheath directed vision obturator was introduced anterior urethra. The anterior urethra is normal. The prostatic urethra shows left lateral lobe apical obstruction as well as a ball-valve flap from the anterior left apical prostate. With the super second loop I first resect the remaining left apical lateral lobe as well as a redundant flap. I then open up the bladder neck more thoroughly. I resect a small amount right apical tissue. I controlled the prosthetic bleeding with electrocautery. Empty the bladder of prostatic chips a. I sit at the apex of the prostate with the resectoscope and it is wide open. The bladder wall does look quite floppy and I'm concerned however of a hypotonic neurogenic bladder. The Castillo catheter, 18-Occitan coud-tip catheters introduced the bladder. The patient is awake and returned recovery in good condition. He'll be discharged home upon recovery from indwelling cath Impression patient is undergoing a secondary TURP and there is no remaining obstructive tissue. He'll be discharged home upon recovery with a Castillo catheter. Recommendations: The patient be discharged home upon recovery and follow in the office in 3 days for catheter removal.
[2022-10-18] MEDS ORDERED: PHENYLEPHRINE 10 MG/ML VIAL IV ONE (12:34)
[2022-10-18 12:39] VITALS: TEMP 97
[2022-10-18 13:54] VITALS: RESP 16
[2022-10-18 14:47] VITALS: BP 133/71; PULSE 50
== END 2022-10-18 15:02 | disposition home or self-care (01) ==
LOC: OR 09:05
PROVIDERS: ATTEND Urology
DX: N41.1 Chronic prostatitis (principal); N40.1 Benign prostatic hyperplasia with lower urinary tract symptoms; E78.5 Hyperlipidemia, unspecified; I25.2 Old myocardial infarction; Z95.5 Presence of coronary angioplasty implant and graft; Z87.891 Personal history of nicotine dependence; Z79.82 Long term (current) use of aspirin; Z79.899 Other long term (current) drug therapy
CPT/HCPCS: 88305; 52601; J2250; J1100; J2370; J2405; J3010; J1580; J0290; J1170; J1885; J2704; J2001